=== PATIENT | male | born 2000 | race African-American/Black ===

== ENCOUNTER 2020-07-12 15:06 | Emergency (ER) | payer MEDICAID ==
[~2020-07-12] VITALS: Ht 170.2 cm; Wt 68.2 kg
[2020-07-12] MEDS ORDERED: IBUPROFEN 400 MG TABLET PO ONE (16:00)
[2020-07-12] MEDS ORDERED: ACETAMINOPHEN 325 MG TABLET PO ONE (16:00)
[2020-07-12 16:26] VITALS: BP 112/80
== END 2020-07-12 16:30 | disposition home or self-care (01) ==
LOC: EMS 15:06
DX: R68.84 Jaw pain (principal); V49.40XA Driver injured in collision with unspecified motor vehicles in traffic accident, initial encounter; Y93.89 Activity, other specified; Y92.89 Other specified places as the place of occurrence of the external cause; Y99.8 Other external cause status
CPT/HCPCS: 99283